=== PATIENT | female | born 1990 | race Caucasian/White ===

== ENCOUNTER 2018-12-12 19:12 | Emergency (ER) | payer BC, MEDICAID ==
[2018-12-12] MEDS ORDERED: NS 0.9% 1000 ML** 2,000 ML IV ONE (19:35)
[2018-12-12] MEDS ORDERED: Metoclopramide IV* 5 MG/ML 2 ML VIAL IV ONE (19:36)
--- NOTE | 2018-12-12 19:42 | ED ---
GI/ HPI - HPI Summary HPI Summary: A 28 y/o female presents to [facility] with a chief complaint of N/V for the past five days. At triage she rated her pain as a 4/10 in severity. She is 6 weeks . She says that she had an ultrasound 9 days ago. She had a miscarriage on 10/21/18. This is her fifth and she has two children at home. She says that she feels dehydrated and lightheaded. She denies vaginal discharge or abdominal cramping. At triage she rated her pain as a 4/10 in severity. - History of Current Complaint Chief Complaint: EDNauseaVomitDiarrh Time Seen by Provider: 12/12/18 19:31 Stated Complaint: DEHYDRATION PER PT Hx Obtained From: Patient Onset/Duration: Started Days Ago, Still Present Timing: Constant, Lasting Days Severity: Moderate Current Severity: Moderate Pain Intensity: 4 - out of 10 Location of Pain: Diffuse Pain Characteristics: Unable to describe Associated Signs and Symptoms: Positive: Lightheadedness. Negative: Fever, Abdominal Pain Additional Signs & Symptoms: Negative: Vaginal Discharge Aggravating Factor(s): Nothing Alleviating Factor(s): Nothing - Allergy/Home Medications Allergies/Adverse Reactions: Allergies Allergy/AdvReac Type Severity Reaction Status Date / Time aspirin Allergy Hives Verified 12/12/18 19:16 hydrocodone Allergy Hives Verified 12/12/18 19:16 Latex, Natural Rubber Allergy Hives Verified 12/12/18 19:16 Home Medications: Home Medications Multivitamin Tablet 1 tab PO DAILY 12/12/18 [History Confirmed 12/12/18 ] Sertraline* 100 mg PO DAILY 12/12/18 [History Confirmed 12/12/18] PMH/Surg Hx/FS Hx/Imm Hx Sensory History: Denies: Hx Deafness EENT History: Denies: Hx Deafness Infectious Disease History: No Infectious Disease History: Denies: Traveled Outside the [place] in Last 30 Days - Family History Known Family History: Negative: Seizure Disorder - Social History Alcohol Use: None Hx Substance Use: No Substance Use Type: Reports: None Hx Tobacco Use: Yes Smoking Status (MU): Former Smoker Review of Systems Negative: Fever Positive: Vomiting, Nausea. Negative: Abdominal Pain Positive: other - negative: vaginal discharge Neurological: Other - positive: lightheadedness All Other Systems Reviewed And Are Negative: Yes Physical Exam - Summary Physical Exam Summary: VITAL SIGNS: Reviewed. GENERAL: Patient is a well-developed and nourished FEMALE who is lying comfortable in the stretcher. Patient is not in any acute respiratory distress. HEAD AND FACE: No signs of trauma. No ecchymosis, hematomas or skull depressions. No sinus tenderness. EYES: PERRLA, EOMI x 2, No injected conjunctiva, no nystagmus. EARS: Hearing grossly intact. Ear canals and tympanic membranes are within normal limits. MOUTH: Dry oral mucosa. NECK: Supple, trachea is midline, no adenopathy, no JVD, no carotid bruit, no c- spine tenderness, neck with full ROM. CHEST: Symmetric, no tenderness at palpation. LUNGS: Clear to auscultation bilaterally. No wheezing or crackles. CVS: Regular rate and rhythm, S1 and S2 present, no murmurs or gallops appreciated. ABDOMEN: Soft, non-tender. No signs of distention. No rebound, no guarding, and no masses palpated. Bowel sounds are normal. EXTREMITIES: FROM in all major joints, no edema, no cyanosis or clubbing. NEURO: Alert and oriented x 3. No acute neurological deficits. Speech is normal and follows commands. SKIN: Dry and warm. Triage Information Reviewed: Yes Vital Signs On Initial Exam: Initial Vitals Temp Pulse Resp BP Pulse Ox 98.4 F 74 18 139/81 100 12/12/18 19:16 12/12/18 19:16 12/12/18 19:16 12/12/18 19:16 12/12/18 19:16 Vital Signs Reviewed: Yes Diagnostics - Vital Signs Vital Signs Temp Pulse Resp BP Pulse Ox 12/12/18 19:16 98.4 F 74 18 139/81 100 - Laboratory Result Diagrams: 12/12/18 19:42 12/12/18 19:42 Lab Statement: Any lab studies that have been ordered have been reviewed, and results considered in the medical decision making process. GIGU Course/Dx - Course Assessment/Plan: A 28 y/o female presents to [facility] with a chief complaint of N/ V for the past five days. At triage she rated her pain as a 4/10 in severity. She is 6 weeks . She says that she had an ultrasound 9 days ago. She had a miscarriage on 10/21/18. This is her fifth and she has two children at home. She says that she feels dehydrated and lightheaded. She denies vaginal discharge or abdominal cramping. At triage she rated her pain as a 4/10 in severity. A 28 y/o female presents to [facility] with a chief complaint of N/V for the past five days. At triage she rates her pain as a 4/10 in severity. She is 6 weeks . She says that she had an ultrasound 9 days ago. She had a miscarriage on 10/21/18. This is her fifth and she has two children at home. She says that she feels dehydrated and lightheaded. She denies vaginal discharge or abdominal cramping. At triage she rates her pain as a 4/10 in severity. In the ED course the patient was given 2 L of IV fluids and Reglan for nausea and vomiting. Blood work significant for iron deficiency anemia. I went multiple times back into the room to discuss the findings with the patient on reassessment however the patient is not there. We looked for the patient in the ER, in the waiting room and it seems that the patient left. We called the number for the patient and there was no answer. Charge nurse will call the police since the patient left with an IV access. - Diagnoses Provider Diagnoses: Nausea & vomiting, Eloped from emergency department Discharge - Sign-Out/Discharge Documenting (check all that apply): Patient Departure - eloped Patient Received Moderate/Deep Sedation with Procedure: No - Discharge Plan Condition: Fair Disposition: ELOPEMENT Referrals: No Primary Care Phys,NOPCP [Primary Care Provider] - - Billing Disposition and Condition Condition: FAIR Disposition: Elopement - Attestation Statements Document Initiated by Ariesibtravis: Yes Documenting Scribe: Jaylen Deluca Provider For Whom Didi is Documenting (Include Credential): Karl Sun MD Scribe Attestation: I, aries Lopezibed for Karl Sun MD on 12/13/18 at 1033. Scribe Documentation Reviewed: Yes Provider Attestation: The documentation as recorded by the Jaylen mehta accurately reflects the service I personally performed and the decisions made by me, Karl Sun MD Status of Scribe Document: Viewed
[2018-12-12 19:55] LABS: ABS Basophils 0.1 10^3/ul (0-0.2); ABS Lymphocytes 1.7 10^3/ul (1.0-4.8); ABS Monocytes 0.4 10^3/ul (0-0.8); ABS Neutrophils 4.2 10^3/ul (1.5-7.7); Eosinophil % 0.6 %; Hematocrit 24 % (35-47); Hemoglobin 7.4 g/dL (12.0-16.0); Lymphocyte % 26.6 %; Mean Corpuscular HGB Conc 31 g/dL (31-36); Mean Corpuscular Hemoglobin 18 pg (27-31); Mean Corpuscular Volume 60 fL (80-97); Mean Platelet Volume 7.4 fL (7.4-10.4); Platelet Count 299 10^3/uL (150-450); Red Cell Distribution Width 19 % (10-15); White Blood Count 6.4 10^3/uL (3.5-10.8)
[2018-12-12 20:10] LABS: Albumin 4.1 g/dL (3.2-5.2); Albumin/Globulin Ratio 1.5 (1-3); BUN/Creatinine Ratio 26.1 (8-20); EGFR African American 197.2 (>60); EGFR Non-African American 162.9 (>60); Globulin 2.8 g/dL (2-4); Potassium 3.9 mmol/L (3.5-5.0); Total Bilirubin 0.3 mg/dL (0.2-1.0); Total Protein 6.9 g/dL (6.4-8.9)
[2018-12-12 20:57] LABS: Microcytosis 2+; Tear Drop Cells 1+
[2018-12-12 21:03] VITALS: BP 124/73
== END 2018-12-12 21:15 | disposition left against medical advice (07) ==
LOC: ED 19:12
DX: R11.2 Nausea with vomiting, unspecified (principal); Z53.21 Procedure and treatment not carried out due to patient leaving prior to being seen by health care provider; Z88.5 Allergy status to narcotic agent; Z88.8 Allergy status to other drugs, medicaments and biological substances; Z91.040 Latex allergy status
CPT/HCPCS: 36415; 80053; 83690; 84702; 85025; 85060; 96361; 96374; 99283; J2765